=== PATIENT | female | born 1945 | race Asian ===

== ENCOUNTER 2016-11-21 09:52 | Outpatient (CLI) | payer OTHER ==
[~2016-11-21 09:52] MED LIST: ASA LO-DOSE81 MG PO; BENA20TA2 PO; CETI10TA PO; CLONIDINE0.2 MG PO; FLUT0.05 NAS; HYDR25TA60 PO; LEVO0.0218 PO; LISI20TA11 PO; LOSA50TA PO; METO25TA4 PO; OMEPRAZOLE40 MG PO; RANI150T78 PO; SIMV20TA2 PO; TRAM50TA PO; TRIA37.541 PO; VALS160T2 PO; Z-PAK PO; ZANTAC 75 PO
[2016-11-21 10:31] LABS: PLATELET COUNT 297 K/uL (152-353)
== END 2016-11-21 19:44 | disposition home or self-care (01) ==
LOC: LABW 09:52
PROVIDERS: Internal Medicine
DX: I10 Essential (primary) hypertension (principal)
CPT/HCPCS: 36415; 80053; 80061; 81000; 84443; 85027

== ENCOUNTER 2017-09-29 19:00 | Emergency (ER) | payer OTHER ==
[~2017-09-29] VITALS: Ht 160 cm; Wt 93.4 kg
[2017-09-29 20:17] LABS: PLATELET COUNT 367 K/uL (152-353)
[2017-09-29 20:25] LABS: POTASSIUM 3.5 mmol/L (3.6-5.2)
[2017-09-29 23:35] VITALS: BP 183/96; TEMP 98.2
== END 2017-09-29 23:37 | disposition home or self-care (01) ==
LOC: ED 19:00
DX: K52.89 Other specified noninfective gastroenteritis and colitis (principal); K56.0 Paralytic ileus; R10.84 Generalized abdominal pain; R11.10 Vomiting, unspecified
CPT/HCPCS: 36415; 80053; 83690; 85027; 99283; Q9963

== ENCOUNTER 2017-10-15 21:15 | Emergency (ER) | payer OTHER ==
[~2017-10-15] VITALS: Ht 162.6 cm; Wt 103.4 kg
[2017-10-15 22:16] LABS: PLATELET COUNT 465 K/uL (152-353)
[2017-10-15 22:24] LABS: POTASSIUM 3.8 mmol/L (3.6-5.2)
[2017-10-16 03:08] VITALS: BP 112/69; TEMP 98.5
== END 2017-10-16 03:10 | disposition short-term general hospital (02) ==
LOC: ED 21:15
PROC: 0T9B70Z Drainage of Bladder with Drainage Device, Via Natural or Artificial Opening (ICD-10-PCS; principal; 2017-10-15)
PROC: 0D9670Z Drainage of Stomach with Drainage Device, Via Natural or Artificial Opening (ICD-10-PCS; 2017-10-15)
DX: K56.699 Other intestinal obstruction unspecified as to partial versus complete obstruction (principal)
CPT/HCPCS: 36415; 51702; 80053; 81000; 82150; 83690; 85027; 96360; 96361; 99284; J7120

== ENCOUNTER 2017-10-16 03:12 | Outpatient (CLI) | payer OTHER | END 2017-10-16 04:37 | disposition short-term general hospital (02) | LOC: AMB 03:12 | DX: K56.699 Other intestinal obstruction unspecified as to partial versus complete obstruction (principal) | CPT/HCPCS: A0425; A0429 ==